=== PATIENT | male | born 2000 ===

== ENCOUNTER 2022-02-05 11:17 | Emergency (ER) | payer OTHER ==
[~2022-02-05] VITALS: Ht 167.6 cm; Wt 75.0 kg
[2022-02-05 12:30] VITALS: BP 125/76; PULSE 79; TEMP 98.6
== END 2022-02-05 12:32 | disposition home or self-care (01) ==
LOC: COL.ER 11:17
DX: S02.2XXA Fracture of nasal bones, initial encounter for closed fracture (principal); S16.1XXA Strain of muscle, fascia and tendon at neck level, initial encounter; S40.012A Contusion of left shoulder, initial encounter; S09.90XA Unspecified injury of head, initial encounter; V89.2XXA Person injured in unspecified motor-vehicle accident, traffic, initial encounter; Y92.410 Unspecified street and highway as the place of occurrence of the external cause